=== PATIENT | female | born 1980 ===

== ENCOUNTER 2022-07-10 06:16 | Outpatient (CLI) | payer MEDICARE, MEDICAID, SELFPAY | END 2022-07-10 06:17 | disposition home or self-care (01) | LOC: SLEEP 07-11 06:18 | PROVIDERS: Visit Provider Family Medicine | DX: G47.33 Obstructive sleep apnea (adult) (pediatric) (principal); G47.36 Sleep related hypoventilation in conditions classified elsewhere; Z86.69 Personal history of other diseases of the nervous system and sense organs; R40.0 Somnolence | CPT/HCPCS: 95810 ==